=== PATIENT | male | born 1985 | race African-American/Black ===

== ENCOUNTER → 2025-06-15 14:25 | Outpatient (BNVA) | payer SELFPAY | PROVIDERS: Visit Provider Physician Assistant Medical | DX: Z02.1 Encounter for pre-employment examination (principal); R76.11 Nonspecific reaction to tuberculin skin test without active tuberculosis ==

== ENCOUNTER → 2025-06-21 13:42 | Outpatient (BNVA) | payer SELFPAY | DX: Z86.15 Personal history of latent tuberculosis infection (principal) | CPT/HCPCS: 71045 ==